=== PATIENT | female | born 1930 | race Caucasian/White ===

== ENCOUNTER 2016-11-20 12:25 | Observation (INO) | payer MEDICARE, OTHER ==
[~2016-11-20] VITALS: Ht 162.6 cm; Wt 60.8 kg
[2016-11-20] MEDS ORDERED: SODIUM CHLORIDE 0.9% 1,000 ML ONE (14:04)
[2016-11-20] MEDS ORDERED: ACETAMINOPHEN 325 MG TAB PO PRN (16:50)
[2016-11-20] MEDS ORDERED: ALU/MAG/SIM 30 ML UDC PO PRN (16:50)
[2016-11-20] MEDS ORDERED: MAG HYDROX 30 ML UDC PO PRN (16:50)
[2016-11-20] MEDS ORDERED: ARTIF TEARS OP SOLN 0.4ML EYE LT SCH (16:50)
[2016-11-20] MEDS ORDERED: SALINE FLUSH 10 ML FLUSH PRN (16:50)
[2016-11-20] MEDS ORDERED: ACETAMINOPHEN 325 MG TAB ONE (17:25)
[2016-11-20 19:23] VITALS: BP_SYST 120; RESP 16; TEMP 98.3; Ht 162.6 cm; Wt 60.8 kg
[2016-11-20] MEDS: SALINE FLUSH 10 ML FLUSH SCH (21:28)
[2016-11-20] MEDS: ALPRAZOLAM 0.25 MG TAB PO SCH (21:28)
[2016-11-20] MEDS: CALC CARB 500 MG CHEWTAB PO SCH (21:28)
[2016-11-20] MEDS: GABAPENTIN 600 MG TAB PO SCH (21:28)
[2016-11-20 22:00] VITALS: BP_SYST 135; RESP 18; TEMP 98.5
[2016-11-20 22:26] VITALS: BP_SYST 122; RESP 18; TEMP 98.5
[2016-11-20 22:42] VITALS: BP_SYST 131; RESP 18; TEMP 98.4
[2016-11-20 23:43] VITALS: BP_SYST 133; RESP 16; TEMP 98
[2016-11-21] VITALS (22 sets, daily range): BP systolic 100–168; RESP 16–20; TEMP 97.6–98.7
[2016-11-21] MEDS ORDERED: Furosemide 20 MG/2 ML VIAL IV ONE ×2 (03:20→14:10)
[2016-11-21] MEDS ORDERED: SODIUM CHLORIDE 0.9% FLUSH BAG 500 ML IV SCH (06:00)
[2016-11-21] MEDS ORDERED: PANTOPRAZOLE 40 MG TAB PO SCH (07:00)
[2016-11-21] MEDS: SALINE FLUSH 10 ML FLUSH SCH (08:08)
[2016-11-21] MEDS: GABAPENTIN 600 MG TAB PO SCH ×2 (08:08→16:36)
[2016-11-21] MEDS: ALPRAZOLAM 0.25 MG TAB PO SCH (08:09)
[2016-11-21] MEDS: CALC CARB 500 MG CHEWTAB PO SCH (08:09)
[2016-11-21] MEDS ORDERED: MULTIVITS/MIN (OCUVITE) TAB PO SCH (09:00)
[2016-11-21] MEDS ORDERED: LATANOPROST OP SOLN EYE EACH SCH (09:00)
[2016-11-21] MEDS ORDERED: POLYETHYLENE GLYCOL 17 GM PACKET PO SCH (09:00)
[2016-11-21] MEDS ORDERED: OMEGA 3 FATTY ACIDS 1 GM CAP PO SCH (09:00)
[2016-11-21] MEDS ORDERED: SERTRALINE 100 MG TAB PO SCH (09:00)
== END 2016-11-21 14:07 | disposition home or self-care (01) ==
LOC: ENRESERVTM → ENRESERVDT → ER 12:25 → EMR 16:42 → ENPENDDIS 16:42 → 3NT 19:25
PROVIDERS: ADMIT Hospitalist; ATTEND Hospitalist
DX: D50.9 Iron deficiency anemia, unspecified (principal); F41.9 Anxiety disorder, unspecified; E78.5 Hyperlipidemia, unspecified; M54.9 Dorsalgia, unspecified; K21.9 Gastro-esophageal reflux disease without esophagitis; K44.9 Diaphragmatic hernia without obstruction or gangrene; I10 Essential (primary) hypertension; G62.9 Polyneuropathy, unspecified; M19.90 Unspecified osteoarthritis, unspecified site; M81.0 Age-related osteoporosis without current pathological fracture; E05.90 Thyrotoxicosis, unspecified without thyrotoxic crisis or storm; R25.1 Tremor, unspecified
CPT/HCPCS: 36415; 36430; 71010; 80053; 81003; 82274; 82553; 82607; 82746; 83540; 83735; 84439; 84443; 84466; 84484; 85025; 85610; 85730; 86850; 86870; 86900; 86901; 86902; 86922; 93005; 96360; 96361; 97799; 99285; G0378; P9016; 99217; 99220